=== PATIENT | male | born 1945 | race Caucasian/White ===

== ENCOUNTER 2023-07-03 02:20 | Emergency (ER) | payer MEDICARE, BC ==
[2023-07-03] MEDS ORDERED: diphenhydrAMINE 50 MG/ML SDV ONE (02:33)
[2023-07-03] MEDS ORDERED: methylPREDNISolone Sodium Succinate 125 MG/2 ML SDV ONE (02:34)
[2023-07-03] MEDS ORDERED: diphenhydrAMINE 50 MG/ML SDV IVPUSH ONE (02:37)
[2023-07-03] MEDS ORDERED: methylPREDNISolone Sodium Succinate 125 MG/2 ML SDV IVPUSH ONE (02:37)
[2023-07-03] MEDS ORDERED: EPINEPHrine 1:10,000 1 MG/10 ML Syringe IVPUSH ONE (02:38)
[2023-07-03] MEDS ORDERED: Sodium Chloride 0.9% 1,000 ML ONE ×2 (03:24→06:35)
[2023-07-03] MEDS ORDERED: Sodium Chloride 0.9% 1,000 ML IV ONE (03:32)
[2023-07-03] MEDS ORDERED: Sodium Chloride 0.9% 10 ML Syringe FLUSH PRN (03:51)
[2023-07-03 04:06] LABS: BASOPHILS ABSOLUTE AUTO 0.03 10^3/uL (0.00-0.10); BASOPHILS PERCENT AUTO 0.2 % (0.0-1.0); EOSINOPHILS ABSOLUTE AUTO 0.17 10^3/uL (0.10-0.30); EOSINOPHILS PERCENT AUTO 1.4 % (1.0-3.0); HEMATOCRIT 44.1 % (40.0-52.0); HEMOGLOBIN 14.6 g/dL (13.0-17.0); IMMATURE GRAN ABSOLUTE AUTO 0.03 10^3/uL (0.00-0.50); IMMATURE GRAN PERCENT AUTO 0.2 % (0.0-5.0); LYMPHOCYTES ABSOLUTE AUTO 0.83 10^3/uL (1.00-4.00); LYMPHOCYTES PERCENT AUTO 6.7 % (20.0-40.0); MEAN CORPUSCULAR HGB CONC 33.1 g/dL (32.0-36.0); MEAN CORPUSCULAR VOLUME 96.7 fL (82.0-92.0); MEAN PLATELET VOLUME 9.7 fL (7.4-10.4); MONOCYTES PERCENT AUTO 6.5 % (2.0-8.0); NEUTROPHILS ABSOLUTE AUTO 10.47 10^3/uL (2.50-7.00); PLATELET COUNT,PLT 212 10^3/uL (150-400); RED BLOOD CELL COUNT 4.56 10^6/uL (4.50-6.00); RED CELL DISTRIBUTION WIDTH 12.4 % (11.5-14.5); WHITE BLOOD CELL COUNT,WBC 12.33 10^3/uL (5.00-10.00)
[2023-07-03 04:23] LABS: CALCIUM 7.8 mg/dL (8.7-10.3); CARBON DIOXIDE,CO2 27.7 mmol/L (21.0-32.0); CREATININE 1.2 mg/dL (0.51-1.17); EST CRCL DRUG DOSING (CG) 59.19 mL/min; POTASSIUM,K 3.7 mmol/L (3.5-5.1)
[2023-07-03] MEDS ORDERED: Aspirin 81 MG Tab.Chew ONE (04:27)
[2023-07-03] MEDS ORDERED: Aspirin 81 MG Tab.Chew PO ONE (04:34)
[2023-07-03] MEDS ORDERED: Sodium Chloride 0.9% 1,000 ML IV SCH (06:45)
== END 2023-07-03 06:56 ==
LOC: KA.ED 02:20
DX: I21.4 Non-ST elevation (NSTEMI) myocardial infarction (principal); T78.3XXA Angioneurotic edema, initial encounter; Z88.5 Allergy status to narcotic agent; Z79.899 Other long term (current) drug therapy
CPT/HCPCS: 36415; 80048; 84484; 85025; 93005; 93010; 96361; 96374; 96375; 99284; 99285-25; A9270-GY; J0171; J1200; J2930; J7030; Q3014